=== PATIENT | male | born 1960 | race African-American/Black ===

== ENCOUNTER 2018-11-17 15:04 | Emergency (ER) | payer MEDICAID ==
[2018-11-17 15:12] VITALS: BP 186/112
[2018-11-17] MEDS ORDERED: TAMSULOSIN HCL 0.4 MG CAP PO ONE (15:20)
--- NOTE | 2018-11-17 15:21 | EDPHY ---
H & P Time Seen by Provider: 11/17/18 15:13 HPI/ROS: CHIEF COMPLAINT: Requesting medication refill HISTORY OF PRESENT ILLNESS: Patient has been out of his Flomax which he usually takes daily for benign prostatic hypertrophy for the last 2 days. He says that he gets pain in his prostate "inside" which is his typical symptoms that happens when he runs out of his medication. He has some urinary hesitancy but denies dysuria hematuria or incontinence. REVIEW OF SYSTEMS: No nausea vomiting or abdominal pain, no weakness or numbness in legs, no fever or chills PAST MEDICAL HISTORY: Prostatic hypertrophy and hypertension, left inguinal hernia Social history: Primary care in [place] General Appearance: Alert and conversant, cooperative. Some suprapubic fullness, soft left inguinal hernia, normal male . No rebound or guarding. Ambulatory without ataxia or assistance. Emergency Department course/MDM: Offered bladder scan and catheter if he is retaining, patient refused. Discussed prostate exam to evaluate for infection, patient refused. He states that this is his typical presentation when he is not taking his Flomax and requests only that I give him the medication in a prescription and he will follow up with his primary care provider. Patient clearly has capacity to make decisions regarding his care. Smoking Status: Current every day smoker Constitutional: Initial Vital Signs Temperature (C) 36.8 C 11/17/18 15:08 Heart Rate 94 11/17/18 15:08 Respiratory Rate 18 11/17/18 15:08 Blood Pressure 186/112 H 11/17/18 15:08 O2 Sat (%) 99 11/17/18 15:08 O2 Delivery Mode Room Air Allergies/Adverse Reactions: No Known Allergies Allergy (Unverified 11/17/18 15:08) Home Medications: Medication Instructions Recorded Flomax 11/17/18 Tamsulosin HCl [Flomax 0.4 MG (*)] 0.4 mg PO DAILY #20 cap 11/17/18 Verapamil 11/17/18 MDM/Departure - MDM Medications Given: Discontinued Medications Tamsulosin HCl (Flomax) 0.4 mg PO EDNOW ONE Stop: 11/17/18 15:21 Last Admin: 11/17/18 15:28 Dose: 0.4 mg - Depart Disposition: Home, Routine, Self-Care Clinical Impression: Prostatic hypertrophy Condition: Good Instructions: Tamsulosin (By mouth) Prescriptions: Tamsulosin HCl [Flomax 0.4 MG (*)] 0.4 mg PO DAILY #20 cap Referrals: dr. miguel a [Other] - 5-7 days, call for appt. (your regular provider)
== END 2018-11-17 15:32 | disposition home or self-care (01) ==
DX: Z76.0 Encounter for issue of repeat prescription (principal); N40.0 Benign prostatic hyperplasia without lower urinary tract symptoms